=== PATIENT | female | born 1980 | race Caucasian/White ===

== ENCOUNTER 2017-09-24 14:52 | Emergency (ER) | payer OTHER ==
[~2017-09-24] VITALS: Ht 165.1 cm; Wt 63.5 kg
[~2017-09-24 14:52] MED LIST: AMOXICILLIN875 MG PO
[2017-09-24 15:14] LABS: URINE BILIRUBIN NEGATIVE (Negative); URINE BLOOD NEGATIVE (Negative); URINE CLARITY CLEAR; URINE COLOR YELLOW; URINE GLUCOSE-RANDOM NEGATIVE (Negative); URINE KETONES NEGATIVE (Negative); URINE LEUKOCYTES-REFLEX TRACE (Negative); URINE NITRITE-REFLEX NEGATIVE (Negative); URINE PROTEIN NEGATIVE (Negative); URINE SPECIFIC GRAVITY <= 1.005 (1.005-1.030); URINE UROBILINOGEN 0.2 E.U./dl (0.2-1.0)
[2017-09-24 15:23] LABS: BACTERIA-REFLEX >30 Many /HPF (None Seen); CASTS None Seen /LPF (None Seen); CRYSTALS None Seen /LPF (None Seen); SQUAMOUS >10 Many /LPF (0-3); URINE RBC None Seen /HPF (0-2); URINE WBC-REFLEX 0-5 Rare /HPF (0-5)
[2017-09-24] MEDS ORDERED: NAPROSYN500 MG PO (16:05)
[2017-09-24 16:35] VITALS: BP 100/74
== END 2017-09-24 16:35 | disposition home or self-care (01) ==
LOC: M.ERS 14:52
PROVIDERS: Nurse Practitioner Family
DX: Z20.2 Contact with and (suspected) exposure to infections with a predominantly sexual mode of transmission (principal); N92.0 Excessive and frequent menstruation with regular cycle; J45.909 Unspecified asthma, uncomplicated

== ENCOUNTER 2017-11-27 08:47 | Emergency (ER) | payer OTHER ==
[~2017-11-27] VITALS: Ht 165.1 cm; Wt 64.0 kg
[~2017-11-27 08:47] MED LIST changes: +NAPROSYN500 MG PO
[2017-11-27 09:04] LABS: URINE BILIRUBIN NEGATIVE (Negative); URINE BLOOD NEGATIVE (Negative); URINE CLARITY CLEAR; URINE COLOR YELLOW; URINE GLUCOSE-RANDOM NEGATIVE (Negative); URINE KETONES NEGATIVE (Negative); URINE LEUKOCYTES-REFLEX 1+ (Negative); URINE NITRITE-REFLEX NEGATIVE (Negative); URINE PROTEIN NEGATIVE (Negative); URINE SPECIFIC GRAVITY 1.015 (1.005-1.030); URINE UROBILINOGEN 0.2 E.U./dl (0.2-1.0)
[2017-11-27 09:12] LABS: MUCUS None Seen strn/LPF (None Seen); SQUAMOUS >10 Many /LPF (0-3); URINE RBC 3-10 Few /HPF (0-2)
[2017-11-27 09:13] LABS: CASTS None Seen /LPF (None Seen); CRYSTALS None Seen /LPF (None Seen)
[2017-11-27] MEDS ORDERED: PYRIDIUM200 MG PO (09:50)
[2017-11-27] MEDS ORDERED: KEFLEX500 M1 PO (09:50)
[2017-11-27 09:57] VITALS: BP 105/73
== END 2017-11-27 09:58 | disposition home or self-care (01) ==
LOC: M.ERS 08:47
PROVIDERS: Personal Emergency Response Attendant
DX: N39.0 Urinary tract infection, site not specified (principal); J45.909 Unspecified asthma, uncomplicated; F17.210 Nicotine dependence, cigarettes, uncomplicated

== ENCOUNTER 2018-01-09 13:05 | Emergency (ER) | payer OTHER ==
[~2018-01-09] VITALS: Ht 165.1 cm; Wt 63.5 kg
[~2018-01-09 13:05] MED LIST changes: +KEFLEX500 M1 PO; +PYRIDIUM200 MG PO
[2018-01-09 13:29] LABS: URINE BILIRUBIN NEGATIVE (Negative); URINE BLOOD 3+ (Negative); URINE CLARITY CLEAR; URINE COLOR YELLOW; URINE GLUCOSE-RANDOM NEGATIVE (Negative); URINE KETONES NEGATIVE (Negative); URINE LEUKOCYTES-REFLEX 1+ (Negative); URINE NITRITE-REFLEX NEGATIVE (Negative); URINE PROTEIN NEGATIVE (Negative); URINE SPECIFIC GRAVITY <= 1.005 (1.005-1.030); URINE UROBILINOGEN 0.2 E.U./dl (0.2-1.0)
[2018-01-09 13:53] LABS: BACTERIA-REFLEX 1-9 Few /HPF (None Seen); CASTS None Seen /LPF (None Seen); CRYSTALS None Seen /LPF (None Seen); SQUAMOUS >10 Many /LPF (0-3); URINE RBC 3-10 Few /HPF (0-2); URINE WBC-REFLEX 6-15 Few /HPF (0-5)
[2018-01-09] MEDS ORDERED: BACTRIM DS TAB1 EACH PO (13:59)
[2018-01-09] MEDS ORDERED: DIFLUCAN100 MG PO (14:00)
[2018-01-09 14:11] VITALS: BP 120/84
== END 2018-01-09 14:21 | disposition home or self-care (01) ==
LOC: M.ERS 13:05
PROVIDERS: Nurse Practitioner
DX: N39.0 Urinary tract infection, site not specified (principal); A59.9 Trichomoniasis, unspecified; J45.909 Unspecified asthma, uncomplicated; F17.210 Nicotine dependence, cigarettes, uncomplicated; Z90.89 Acquired absence of other organs

== ENCOUNTER 2018-06-04 09:16 | Emergency (ER) | payer OTHER ==
[~2018-06-04] VITALS: Ht 165.1 cm; Wt 62.9 kg
[~2018-06-04 09:16] MED LIST changes: +BACTRIM DS TAB1 EACH PO; +DIFLUCAN100 MG PO
[2018-06-04] MEDS ORDERED: METRONIDAZOLE250 MG PO (09:24)
[2018-06-04 10:36] VITALS: BP 120/64
== END 2018-06-04 10:37 | disposition home or self-care (01) ==
LOC: M.ERS 09:16
DX: S62.001A Unspecified fracture of navicular [scaphoid] bone of right wrist, initial encounter for closed fracture (principal); J45.909 Unspecified asthma, uncomplicated; W01.0XXA Fall on same level from slipping, tripping and stumbling without subsequent striking against object, initial encounter; Y93.89 Activity, other specified; Y92.89 Other specified places as the place of occurrence of the external cause; Y99.8 Other external cause status